=== PATIENT | male | born 1980 | race Caucasian/White ===

== ENCOUNTER 2018-07-12 13:44 | Day surgery (SDC) | payer OTHER ==
[2018-07-03 18:23] VITALS: BMI 24.5
[2018-07-12] MEDS ORDERED: PROPOFOL 20 ML ONE (13:46)
[2018-07-12] MEDS ORDERED: SODIUM CHLORIDE 0.9% P/F 10 ML VIAL IJ ONE (13:46)
[2018-07-12] MEDS ORDERED: LIDOCAINE HCL/PF 2% SDV 5ML VIAL ONE (13:46)
[2018-07-12] MEDS ORDERED: ceFAZolin SODIUM 1 GM VIAL ONE (13:46)
[2018-07-12] MEDS ORDERED: ONDANSETRON 4 MG/2 ML VIAL ONE (13:46)
[2018-07-12] MEDS ORDERED: MIDAZOLAM HCL 2 MG/2 ML SINGLE DOSE VIAL ONE (13:46)
[2018-07-12] MEDS ORDERED: DEXAMETHASONE SOD PHOSPHATE 4 MG/1 ML VIAL ONE (13:46)
[2018-07-12] MEDS ORDERED: KETOROLAC TROMETHAMINE 30 MG/1 ML VIAL ONE (13:47)
[2018-07-12] MEDS ORDERED: BUPIVACAINE HCL/PF 0.5% (5MG/ML) 10 ML VIAL ONE (16:04)
[2018-07-12] MEDS ORDERED: ONDANSETRON 4 MG/2 ML VIAL IVPUSH PRN (16:07)
[2018-07-12] MEDS ORDERED: oxyCODONE HCL 5 MG TABLET PO PRN (16:07)
[2018-07-12] MEDS ORDERED: LACTATED RINGERS SOLUTION 1,000 ML IV SCH (16:15)
[2018-07-12] MEDS ORDERED: ONDANSETRON 4 MG/2 ML VIAL IVPUSH ONE (16:25)
[2018-07-12] MEDS ORDERED: oxyCODONE HCL 5 MG TABLET ONE (17:05)
[2018-07-12] MEDS ORDERED: oxyCODONE HCL 5 MG TABLET PO ONE (17:23)
--- NOTE | 2018-07-12 17:32 | OP ---
DATE OF OPERATION: 07/12/2018 PREOPERATIVE DIAGNOSIS: Left distal biceps rupture, high grade, partial. POSTOPERATIVE DIAGNOSIS: Left distal biceps rupture, high grade, partial. OPERATIVE PROCEDURE: Left distal biceps repair. SURGEON: Andrea Garcia M.D. STUDIO ASSISTANT: Anna Whitman ANESTHESIA: General anesthesia. COMPLICATIONS: None. ESTIMATED BLOOD LOSS: Minimal. INDICATION FOR PROCEDURE: The patient is a 37-year-old male with the above findings, indicated for operative treatment. Risks, benefits, and alternatives were discussed with the patient at length. Proper informed consent was obtained. DESCRIPTION OF PROCEDURE: After proper identification of the patient and correct operative site, patient was brought to the operating room and placed supine on the operating room table, all bony prominences well padded. General anesthesia was provided. Left upper extremity was prepped and draped in the usual sterile fashion. Esmarch bandage to exsanguinate the left upper extremity. Tourniquet inflated to 250 mmHg. Transverse incision was made distal to the antecubital crease. Incision taken sharply through skin with blunt and sharp dissection of subcutaneous tissue, taking care to protect nerve branches and several veins were ligated for exposure. Biceps was found to have approximately 80% tear, had a smooth distal aspect. The remainder of the tear was resected, and the biceps tendon distally was and debrided and whip stitched with a number 2 Fiberwire suture. The bicipital tuberosity was further exposed with care taken to protect the radial posterior osseus nerve. A guidewire was placed into the bicipital tuberosity in bicortical fashion, and the biceps was then used to pull the biceps tendon into the socket create it, and then tied over itself to secure it. This was backed up with an Arthrex 7 mm biotinidases screw. This provided secure stable repair of the distal biceps tendon. Full range of motion was achieved. Thorough irrigation was performed and the wound was closed in layers. The site of the wound was closed with 4-0 Vicryl and 4-0 Monocryl sutures. Sterile dressings were applied. Sling was placed. The patient was reversed from anesthesia and brought to the recovery room in stable condition. Primo Causey, the animal assistant, was integral throughout the procedure. Procedure could not have been performed without a skilled operative animal assistant. ANDREA GARCIA M.D. DANNA/[id number]
[2018-07-12 18:10] VITALS: TEMP 98.7
[2018-07-12 19:12] VITALS: BP 129/82; PULSE 79
== END 2018-07-12 19:00 | disposition home or self-care (01) ==
LOC: FASU 13:44
PROVIDERS: ATTEND Orthopaedic Surgery Hand Surgery
PROC: 0LM40ZZ Reattachment of Left Upper Arm Tendon, Open Approach (ICD-10-PCS; principal; 2018-07-12 15:02)
DX: S46.212A Strain of muscle, fascia and tendon of other parts of biceps, left arm, initial encounter (principal); X58.XXXA Exposure to other specified factors, initial encounter; Y93.9 Activity, unspecified; Y92.9 Unspecified place or not applicable
CPT/HCPCS: 94760